=== PATIENT | female | born 1945 | race Caucasian/White ===

== ENCOUNTER 2017-03-28 09:58 | Day surgery (SDC) | payer MEDICARE, OTHER ==
[2017-03-28] MEDS ORDERED: LIDOCAINE HCL 1% 20 ML VIAL ONE (10:42)
[2017-03-28 11:35] VITALS: BP 206/92; PULSE 65; RESP 20; TEMP 97.7; O2SAT 96
[2017-03-28 11:55] VITALS: BP 182/86; PULSE 60; RESP 20; O2SAT 100
--- NOTE | 2017-03-28 13:24 | RADRPT ---
EXAM DATE/TIME: 03/28/2017 10:11 [facility] COMPARISON: No previous studies available for comparison. EXTERNAL COMPARISON: [facility], CT SOFT TISSUE NECK W/ CONTRAST , Mar 02 2017 INDICATIONS : Right parotid gland mass MEDICAL HISTORY : Hypertension. SURGICAL HISTORY : Hysterectomy. Cholecystectomy. ENCOUNTER: Initial ACUITY: 1 month PAIN SCORE: 0/10 LOCATION: Right neck ORGAN: Right parotid gland SPECIMENS: Two core specimen(s) submitted for pathologic evaluation. DEVICE: 20 gauge Temno needle Post procedure scanning reveals no hematoma or other complication. The possibility does exist that the tissue obtained will be non-diagnostic. If the sample is non-hanh gnostic a repeat biopsy or surgical biopsy may need to be performed. TECHNIQUE: 1. Ultrasound guidance for needle biopsy. 2. Needle biopsy. The risks, benefits and alternatives to the procedure were explained and verbal and written consent w as obtained. The site was prepped in sterile fashion. Full sterile technique was used, including ca p, mask, sterile gloves and gown and a large sterile sheet. Hand hygiene and 2% chlorhexidine and/or betadine/alcohol prep was utilized per protocol for cutaneous antisepsis. The skin and subcutaneous tissues were infiltrated with local anesthetic solution. Sterile gel and sterile probe cover were u tilized for ultrasound guidance. With the patient on the ultrasound table, images were obtained. A needle was advanced into the identified target and the number of specimens as above obtained and maldonado bmitted for pathologic evaluation. The patient tolerated the procedure well and left the ultrasound suite in stable condition. CONCLUSION: Uncomplicated ultrasound guided needle biopsy. Paul Vo MD on March 28, 2017 at 13:22 Board Certified Radiologist. This report was verified electronically.
--- NOTE | 2017-03-28 13:24 | RADRPT ---
EXAM DATE/TIME: 03/28/2017 10:11 [facility] COMPARISON: No previous studies available for comparison. EXTERNAL COMPARISON: [facility], CT SOFT TISSUE NECK W/ CONTRAST , Mar 02 2017 INDICATIONS : Left parotid gland masses. The largest mass will be targeted for biopsy. MEDICAL HISTORY : Hypertension. SURGICAL HISTORY : Hysterectomy. Cholecystectomy. ENCOUNTER: Initial ACUITY: 1 month PAIN SCORE: 0/10 LOCATION: Left neck ORGAN: Left parotid gland SPECIMENS: Two core specimen(s) submitted for pathologic evaluation. DEVICE: 20 gauge Temno needle Post procedure scanning reveals no hematoma or other complication. The possibility does exist that the tissue obtained will be non-diagnostic. If the sample is non-hanh gnostic a repeat biopsy or surgical biopsy may need to be performed. TECHNIQUE: 1. Ultrasound guidance for needle biopsy. 2. Needle biopsy. The risks, benefits and alternatives to the procedure were explained and verbal and written consent w as obtained. The site was prepped in sterile fashion. Full sterile technique was used, including ca p, mask, sterile gloves and gown and a large sterile sheet. Hand hygiene and 2% chlorhexidine and/or betadine/alcohol prep was utilized per protocol for cutaneous antisepsis. The skin and subcutaneous tissues were infiltrated with local anesthetic solution. Sterile gel and sterile probe cover were u tilized for ultrasound guidance. With the patient on the ultrasound table, images were obtained. A needle was advanced into the identified target and the number of specimens as above obtained and maldonado bmitted for pathologic evaluation. The patient tolerated the procedure well and left the ultrasound suite in stable condition. CONCLUSION: Uncomplicated ultrasound guided needle biopsy. Paul Vo MD on March 28, 2017 at 13:23 Board Certified Radiologist. This report was verified electronically.
== END 2017-03-28 12:00 | disposition home or self-care (01) ==
LOC: HRAD 09:58 → HRIP 10:02 → HRAD 12:00
PROVIDERS: ATTEND Otolaryngology Otolaryngology/Facial Plastic Surgery
DX: D11.0 Benign neoplasm of parotid gland (principal); I10 Essential (primary) hypertension
CPT/HCPCS: 42400; 76942; 88305; 88307